=== PATIENT | male | born 1985 | race Caucasian/White ===

== ENCOUNTER 2017-03-19 14:41 | Emergency (ER) | payer SELFPAY ==
[~2017-03-19] VITALS: Ht 185.4 cm; Wt 72.6 kg
--- NOTE | 2017-03-19 14:48 | NUR ---
PT REFUSING TO BE SEEN AT THIS TIME. PT IS ALERT AND ORIENTED X 3. Patient eloped from facility. ER MD notified.
== END 2017-03-19 14:52 | disposition left against medical advice (07) ==
LOC: ER 14:43
DX: Z53.21 Procedure and treatment not carried out due to patient leaving prior to being seen by health care provider (principal)

== ENCOUNTER 2021-08-16 09:47 | Emergency (ER) | payer OTHER ==
[~2021-08-16] VITALS: Ht 193 cm; Wt 77.1 kg
--- NOTE | 2021-08-16 10:16 | NUR ---
CALLED IN ED WAITING ROOM. NO RESPONSE.
[2021-08-16 10:59] VITALS: BP 146/87
[2021-08-16] MEDS ORDERED: SULF1TAB48 PO (11:10)
[2021-08-16] MEDS ORDERED: IBUP-1957 PO (11:10)
--- NOTE | 2021-08-16 11:12 | NUR ---
BIBS FOR C/O R HAND PAIN AND SWELLING X 5 DAYS. PT STS "I DONT KNOW WHAT HAPPEN." RATES PAIN 06/23. WILL CONTINUE TO MONITOR THE PATIENT.
[2021-08-16] MEDS ORDERED: KETOROLAC TROMETHAMINE INJ 60 MG/2 ML VIAL IM ONE (11:30)
[2021-08-16] MEDS ORDERED: KETOROLAC TROMETHAMINE INJ 30 MG/ML VIAL ONE (11:33)
[2021-08-16] MEDS ORDERED: SULFAMETH/TRIMETH 800/160 MG 1 UDTAB TABLET ONE (11:38)
--- NOTE | 2021-08-16 11:59 | NUR ---
Patient discharged to home in stable condition. Written and verbal after care instructions given. Patient verbalizes understanding of instruction.
[2021-08-16] MEDS ORDERED: SULFAMETH/TRIMETH 800/160 MG 1 UDTAB TABLET PO ONE (12:00)
[2021-08-21] MEDS ORDERED: DOXY100C2 PO (16:21)
[2021-08-21] MEDS ORDERED: CLIN300C12 PO (16:21)
== END 2021-08-16 12:00 | disposition home or self-care (01) ==
LOC: ER 09:51
DX: L03.113 Cellulitis of right upper limb (principal); L02.511 Cutaneous abscess of right hand; Z79.899 Other long term (current) drug therapy
CPT/HCPCS: 96372; 99283; J1885

== ENCOUNTER 2021-08-18 12:44 | Inpatient (IN) | payer OTHER ==
[~2021-08-18] VITALS: Ht 195.6 cm; Wt 69.4 kg
[~2021-08-18 12:44] MED LIST: IBUP-1957 PO; SULF1TAB48 PO
--- NOTE | 2021-08-18 13:00 | NUR ---
patient came in to the er c/o R wrist abscess. On rooma ir, breathing evenly and unlabored. Connected to the monitor and pulse ox. Kept comfortable, will continue to monitor accordingly.
[2021-08-18 14:55] LABS: BASOPHILS # (AUTO) 0.1 K/uL (0.0-0.2); BASOPHILS % (AUTO) 0.4 % (0.0-2.0); EOSINOPHILS % (AUTO) 0.3 % (0.0-6.0); HEMATOCRIT 38 % (39-51); HEMOGLOBIN 12.2 g/dL (13.5-17.5); LYMPHOCYTES # (AUTO) 1.2 K/uL (0.8-4.8); LYMPHOCYTES % (AUTO) 8.5 % (20.0-44.0); MEAN CORPUSCULAR HGB CONC 32 g/dl (31.0-36.0); MEAN CORPUSCULAR VOLUME 87 fL (80-96); MONOCYTES # (AUTO) 0.5 K/uL (0.1-1.30); MONOCYTES % (AUTO) 3.8 % (2.0-12.0); NEUTROPHILS # (AUTO) 12.6 K/uL (1.8-8.9); PLATELET COUNT (AUTO) 521 K/uL (150-450); RED BLOOD CELL COUNT(AUTO) 4.36 MIL/uL (4.5-6.0); WHITE BLOOD COUNT (AUTO) 14.4 K/uL (4.3-11.0)
[2021-08-18 15:04] LABS: POTASSIUM 3.5 mmol/L (3.5-5.1)
--- NOTE | 2021-08-18 15:09 | NUR ---
MOVE SHEET SUBMITTED AND CALLED FOR BED.
[2021-08-18] MEDS ORDERED: LIDOCAINE 1%-EPI 1:100,000 20 ML VIAL ONE (15:27)
[2021-08-18] MEDS ORDERED: HYDROCODONE/APAP 5/325MG TABLET ONE (15:27)
[2021-08-18] MEDS ORDERED: HYDROCODONE/APAP 5/325MG TABLET PO ONE (15:30)
[2021-08-18] MEDS ORDERED: LIDOCAINE 1%-EPI 1:100,000 50 ML VIAL IJ ONE (15:30)
[2021-08-18] MEDS ORDERED: VANCOMYCIN 1 GM in IV D5W 250 ML IV ONE (15:30)
--- NOTE | 2021-08-18 16:24 | NUR ---
GOT BED 320-2 ISATU SAUCEDO
--- NOTE | 2021-08-18 17:14 | NUR ---
EPIC CALLED CLOTHING WORKER PAGED
--- NOTE | 2021-08-18 17:55 | NUR ---
[facility] CALLED GENERAL FARM MANAGER PAGED.
--- NOTE | 2021-08-18 19:06 | NUR ---
wheeled patient via gurney accompaneid by EMT in no distress. RN assigned to patient at bedside to assume care.
--- NOTE | 2021-08-18 19:14 | NUR ---
EPIC CALLED SLOT TAG INSERTER PAGED
[2021-08-18] MEDS ORDERED: VANCOMYCIN 1 GM VIAL ONE (19:39)
--- NOTE | 2021-08-18 19:56 | NUR ---
PT TRANSPORTED TO 3RD FLOOR
[2021-08-18 20:00] VITALS: BP 106/54
--- NOTE | 2021-08-18 20:00 | NUR ---
RN ms admission notes Received Pt from ISATU Thorpe. Pt arrived with a gurney. Pt came with vanco antibiotic infuising. Pt is alert and orientedX4. Respiration is normal in room air. No SOB. No S/S of distress noted. VS is stable. NARESH midline # 18 is clean, intact, flushes well and infuising well vanco abx. Pt is able to ambulate with a steady gait. awaiting for admissions orders from MD. Skin assessment is done and performed. wound pictures is taken. Reorient Pt to the room, safety and the use of call light. Pt verbalize understanding. Safety precautions is maintained. Bed at low position, brakes locked, side rails upX2, bed alarm is on and call light is within reach. Will continue to monitor.
--- NOTE | 2021-08-18 20:18 | NUR ---
RN ms notes Dr. Hagan is in the bedside.
[2021-08-18] MEDS ORDERED: MAG HYDROX/AL HYDROX/SIMETH 30 ML UDC PO PRN (21:00)
[2021-08-18] MEDS ORDERED: IV NS 0.9% 1,000 ML IV ONE (21:00)
[2021-08-18] MEDS ORDERED: ACETAMINOPHEN 325 MG TABLET PO PRN (21:00)
[2021-08-18] MEDS ORDERED: ONDANSETRON HCL/PF 4 MG/2 ML VIAL IVP PRN (21:00)
[2021-08-18] MEDS: MORPHINE SULFATE INJ 2 MG/ML DISP.SYRIN IV PRN (21:16)
--- NOTE | 2021-08-18 21:16 | NUR ---
Rn ms notes Pt is complaining of R wrist and arm 9/10 on pain scale and requesting pain meds. Administered morphine 2 mg/iv push as ordered. VS is stable. safety precautions is maintained. will continue to monitor.
[2021-08-18 21:39] VITALS: BP 106/54
--- NOTE | 2021-08-18 21:53 | NUR ---
RN ms notes Called and spoke with lab Ruba to draw lactic acid.
--- NOTE | 2021-08-18 22:04 | NUR ---
RN ms notes Pt refused scd compression. Explained risks and benefits. Pt keep refusing. Will continue to monitor.
--- NOTE | 2021-08-18 22:10 | NUR ---
RN notes Informed and notified MD for Pt's lactic acid is 1.5
--- NOTE | 2021-08-18 23:00 | NUR ---
RN ms notes MD ordered CT wrist right with contrast. Explained and informed Pt regarding the procedure. Pt signed the consent and verbalized understanding.
[2021-08-19] MEDS: VANCOMYCIN 1.25 GM in IV D5W 250 ML IV SCH ×3 (03:11→20:05)
[2021-08-19 06:23] LABS: BASOPHILS % (AUTO) 0.2 % (0.0-2.0); EOSINOPHILS % (AUTO) 0.5 % (0.0-6.0); HEMATOCRIT 35 % (39-51); HEMOGLOBIN 11.8 g/dL (13.5-17.5); LYMPHOCYTES # (AUTO) 1.8 K/uL (0.8-4.8); LYMPHOCYTES % (AUTO) 18.8 % (20.0-44.0); MEAN CORPUSCULAR HGB CONC 34 g/dl (31.0-36.0); MEAN CORPUSCULAR VOLUME 86 fL (80-96); MONOCYTES # (AUTO) 0.5 K/uL (0.1-1.30); MONOCYTES % (AUTO) 5.4 % (2.0-12.0); NEUTROPHILS # (AUTO) 7.3 K/uL (1.8-8.9); NEUTROPHILS % (AUTO) 75.1 % (43.0-81.0); PLATELET COUNT (AUTO) 432 K/uL (150-450); RED BLOOD CELL COUNT(AUTO) 4.06 MIL/uL (4.5-6.0); WHITE BLOOD COUNT (AUTO) 9.7 K/uL (4.3-11.0)
[2021-08-19] MEDS: PANTOPRAZOLE 40 MG TABLET.DR PO SCH (06:39)
[2021-08-19] MEDS: MORPHINE SULFATE INJ 2 MG/ML DISP.SYRIN IV PRN ×4 (06:40→20:06)
--- NOTE | 2021-08-19 06:40 | NUR ---
RN ms closing notes Pt is resting in bed comfortably. Pt is alert and orientedX4. Respiration is normal. NO SOB. No s/s of distress noted. VS is stable. routine meds were given as ordered. NARESH midline is clean, intact and flushes easily. Safety preacutions is maintained. Bed at low position, brakes locked, side rails upX2 and call light is within reach. Will endorse to morning nurse forCOC.
--- NOTE | 2021-08-19 06:40 | NUR ---
RN ms notes Pt is complaining of pain on R hand and R wrist 10/10 on pain scale. Pt requesting pain meds. administered morphine 2 mg/iv push as ordered for pain. VS is stable. Safety precautions is maintained. Will continue to monitor.
[2021-08-19 07:14] LABS: CALCIUM, SERUM 8.5 mg/dL (8.5-10.1); CREATININE 0.9 mg/dL (0.6-1.3); MAGNESIUM 2.3 mg/dL (1.8-2.4); POTASSIUM 3.7 mmol/L (3.5-5.1)
--- NOTE | 2021-08-19 07:45 | NUR ---
MS/RN OPENING NOTES RECEIVED PATIENT ON BED AWAKE, ALERT AND ORIENTED X4. PATIENT IS ON ROOM AIR. PATIENT IN NO APPARENT RESPIRATORY DISTRESS NOTED. NO COMPLAINED OF PAIN NOTED AT THIS TIME. WILL CONTINUE TO MONITOR.
[2021-08-19 08:00] VITALS: BP 109/55
--- NOTE | 2021-08-19 08:07 | NUR ---
WOUND CARE CONSULT: PT PRESENTS WITH RT WRIST ABSCESS, S/P I&D, PRESENT ON ADMISSION. RECOMMENDATIONS MADE FOR SKIN PROTECTION. DISCUSSED WITH NURSING STAFF. DEFER TO PMD FOR POSSIBLE GENERAL SURGERY CONSULT. Addendum: 08/19/21 at 0818 by JAMILAH ARRIAZA WNDNU RECOMMENDATIONS MADE FOR WOUND PACKING. IN AGREEMENT WITH PLAN OF CARE.
[2021-08-19] MEDS ORDERED: CT SWABBABLE VALVE TRANS SET 1 EA INFUS.SET MC ONE (08:38)
[2021-08-19] MEDS ORDERED: IV NS 0.9% 250 ML IV ONE (08:38)
[2021-08-19] MEDS ORDERED: IOHEXOL-300 100 ML VIAL IV ONE (08:38)
--- NOTE | 2021-08-19 08:53 | NUR ---
MS/RN NOTES PATIENT IS OUT IN THE UNIT BAG SEWER BY DEBRANDER.
--- NOTE | 2021-08-19 09:19 | NUR ---
MS/RN NOTES PATIENT CAME BACK IN THE UNIT.
[2021-08-19] MEDS: NICOTINE PATCH (21MG) 21 MG PATCH.TD24 TD SCH (09:20)
--- NOTE | 2021-08-19 12:45 | NUR ---
SS Consult: SS Consult requested for drug abuse & homelessness. The pt. is a 35- year old male who is in [facility] with C/O hand wound. The pt. appears disheveled is A&O X4 and makes good eye contact. The pt. remained calm & cooperative throughout interview. Pt.s mood is depressed with flat affect. Pt. denies visual & auditory hallucinations. Pt. denies SI/ HI. SIMBA explored pt.s mental health Hx. Pt. states he has been diagnosed in the past with a mental illness and refused to provide said diagnosis. SW explored pt.s living situation. Pt. admits he has been experiencing homelessness for the past few years. SW explored pt.s drug & ETOH use. Patient stated he uses Fentanyl & Meth daily. SW provided resources for Medication Assisteed Tx: [facility]: [address] [place] [address] Intake hours: 5:45am9:00am, walk-ins Tuesday, Tuesday, [facility]: [address] [place] [address] Intake hours: 5:45am12:30pm, Tuesday and [facility]: [address] [place] [id number] Intake hours: 8:00am2:00pm, Tuesday through Tuesday Pt. accepted resources and stated, I will probably go to one of these. Pt. is in the contemplation phase of stages of change. Patient stated he has received prior treatment for opioid dependence. Pt. states he is ambulatory. SIMBA explored pt.s support system. Pt. states he has no support system. Pt. states he receives Food stamps & General Relief. Plan: Pt. is agreeable to DC to care home. SIMBA discuss with pt.s nurse who stated there is no DC date at the moment. Nurse to inform SW of DC date for placement. SW will follow up as needed. Pt. signed homeless waiver and it was placed in the chart. SIMBA provided pt. with homeless, and MAT resources and he accepted them :
[2021-08-19] MEDS: ENSURE ENLIVE CHOC 237 ML CAN PO SCH ×2 (13:30→17:28)
[2021-08-19 16:00] VITALS: BP 110/61
--- NOTE | 2021-08-19 18:58 | NUR ---
MS/RN CLOSING NOTES PATIENT IS ON BED AWAKE ALERT AND ORIENTED X4. PATIENT IS ON ROOM AIR. PATIENT IN NO APPARENT RESPIRATORY DISTRESS NOTED. NO COMPLAINED OF PAIN AT THIS TIME. IV ACCESS AT LEFT UPPER ARM MIDLINE #18G PATENT AND INTACT. SEEN AND EXAMINED BY MD WITH ORDERS MADE AND CARRIED OUT. ALL DUE MEDICATIONS WAS GIVEN. SAFETY PRECAUTIONS WAS IN PLACED. BED IN LOWEST POSITION AND LOCKED. SIDERAILS UP X2. CALL LIGHT WITHIN REACH. WILL ENDORSED TO CUSHION COVER INSPECTOR FOR ARETHA.
--- NOTE | 2021-08-19 19:37 | NUR ---
MS RN OPENING NOTES RECEIVED PATIENT IN BED, WATCHING TV. AOx4. ABLE TO MAKE NEEDS KNOWN. ON RA AND TOLERATING WELL. NO SOB NOTED. NO S/SX OF RESPIRATORY DISTRESS NOTED. IV ACCESS IN NARESH MIDLINE #18G. IV IS INTACT, PATENT AND FLUSHING WELL. SAFETY PRECAUTIONS IN PLACE: BED IN LOWEST, LOCKED POSITION, SIDERAILS UPx2. TABLE AND CALL LIGHT WITHIN REACH. WILL CONTINUE TO MONITOR.
--- NOTE | 2021-08-19 20:06 | NUR ---
ADMINISTERED MORPHINE PER MD ORDER FOR PAIN. VITAL SIGNS WNL. WILL CONTINUE TO MONITOR.
[2021-08-20] MEDS: MORPHINE SULFATE INJ 2 MG/ML DISP.SYRIN IV PRN ×6 (00:04→20:38)
--- NOTE | 2021-08-20 00:04 | NUR ---
ADMINISTERED MORPHINE PER MD ORDER FOR PAIN. VITAL SIGNS WNL. WILL CONTINUE TO MONITOR.
[2021-08-20] MEDS: VANCOMYCIN 1.25 GM in IV D5W 250 ML IV SCH ×3 (04:01→19:55)
--- NOTE | 2021-08-20 04:02 | NUR ---
ADMINISTERED MORPHINE PER MD ORDER FOR PAIN. VITAL SIGNS WNL. WILL CONTINUE TO MONITOR.
--- NOTE | 2021-08-20 06:42 | NUR ---
MS RN CLOSING NOTES PATIENT IN BED, ASLEEP, AWAKENS TO VERBAL STIMULI. AOx4. ABLE TO MAKE NEEDS KNOWN. ON RA AND TOLERATING WELL. NO SOB NOTED. NO S/SX OF RESPIRATORY DISTRESS NOTED. IV ACCESS IN NARESH MIDLINE #18G. IV IS INTACT, PATENT AND FLUSHING WELL. ALL NEEDS MET. PAIN TREATED THROUGHOUT SHIFT. PT KEPT CLEAN AND DRY. SAFETY PRECAUTIONS IN PLACE: BED IN LOWEST, LOCKED POSITION, SIDERAILS UPx2. TABLE AND CALL LIGHT WITHIN REACH. WILL ENDORSE TO ONCOMING SHIFT.
--- NOTE | 2021-08-20 07:30 | NUR ---
MS RN OPENING NOTES RECEIVED PATIENT ON BED, AWAKE AND A/O X4. ON ROOM AIR TOLERATING WELL. NO SOB NOTED. NOT IN DISTRESS. WITH NO COMPLAINTS OF PAIN OR DISCOMFORT AT THIS TIME. WITH IV ACCESS AT LEFT UPPER ARM MIDLINE G18, SALINE LOCKED, INTACT AND PATENT. SAFETY MEASURES IN PLACE. CALL LIGHT WITHIN REACH. BED ON LOWEST AND LOCKED POSITION. SIDE RAILS UP X2. WILL CONTINUE TO MONITOR.
[2021-08-20 08:00] VITALS: BP 108/61
[2021-08-20] MEDS: PANTOPRAZOLE 40 MG TABLET.DR PO SCH (08:00)
[2021-08-20] MEDS: NICOTINE PATCH (21MG) 21 MG PATCH.TD24 TD SCH (08:00)
--- NOTE | 2021-08-20 08:15 | NUR ---
MS RN NOTES PATIENT REPORTED TO HAVE PAIN AT RIGHT HAND AT THE SCALE OF 8/10. VITAL SIGNS CHECKED. MORPHINE SULPHATE 2MG IV GIVEN PRN FOR PAIN. COMFORT MEASURES PROVIDED. WILL CONTINUE TO MONITOR.
[2021-08-20] MEDS: ENSURE ENLIVE CHOC 237 ML CAN PO SCH ×3 (08:49→16:39)
[2021-08-20 16:00] VITALS: BP 118/61
--- NOTE | 2021-08-20 18:35 | NUR ---
MS RN CLOSING NOTES PATIENT RESTING ON BED AND A/O X4. ON ROOM AIR TOLERATING WELL. NO SOB NOTED. NOT IN DISTRESS. WITH NO COMPLAINTS OF PAIN OR DISCOMFORT AT THIS TIME. WITH IV ACCESS AT LEFT UPPER ARM MIDLINE G18, SALINE LOCKED, INTACT AND PATENT. WOUND DRESSING DONE. SAFETY MEASURES IN PLACE. CALL LIGHT WITHIN REACH. BED ON LOWEST AND LOCKED POSITION. SIDE RAILS UP X2. WILL ENDORSE TO NEXT SHIFT FOR ARETHA.
[2021-08-20 20:00] VITALS: BP_SYST 102; BP_SYST 106; BP_SYST 131; BP_DIAS 59; BP_DIAS 71
--- NOTE | 2021-08-20 20:00 | NUR ---
MS RN NOTES RECEIVED LAYING COMFORTABLY ON BED,A/O X4,HOMELESS,RIGHT WRIST ABSCESS WITH DRESSING INTACT AND DRY.AMBULATORY.CALL LIGHT IN REACH,NEEDS ANTICIPATED.
--- NOTE | 2021-08-20 20:00 | NUR ---
MS RN NOTES DUE VANCOMYCIN IV STARTED ON LEFT UPPER ARM MIDLINE THRU IV PUMP.
--- NOTE | 2021-08-20 20:38 | NUR ---
MS RN NOTES PAIN MANAGEMENT C/O PAIN ON RIGHT WRIST,MORPHINE 2MG IV GIVEN FOR PAIN SCALE 8/10
[2021-08-21] MEDS: MORPHINE SULFATE INJ 2 MG/ML DISP.SYRIN IV PRN ×3 (00:28→09:41)
--- NOTE | 2021-08-21 00:28 | NUR ---
MS RN NOTES PAIN MANAGEMENT C/O PAIN ON RIGHT WRIST 8/10 ON PAIN SCALE,MORPHINE 2MG IV GIVEN ORDERED AND PER PATIENT REQUEST.
[2021-08-21] MEDS: VANCOMYCIN 1.25 GM in IV D5W 250 ML IV SCH ×2 (04:01→12:12)
--- NOTE | 2021-08-21 06:21 | NUR ---
MS RN NOTES FAIRLY RESTED AT NIGHT,STILL WITH ON AND OFF MODERATE TO SEVERE PAIN ON THE RIGHT WRIST,MANAGE WITH MORPHINE 2MG.IV ABX TOLERATED WELL,NO ADVERSE REACTION NOTED,CALL LIGHT IN REACH,NEEDS ATTENDED.WILL ENDORSE TO DAY NURSE FOR ARETHA.
[2021-08-21] MEDS: PANTOPRAZOLE 40 MG TABLET.DR PO SCH (08:29)
[2021-08-21] MEDS: NICOTINE PATCH (21MG) 21 MG PATCH.TD24 TD SCH (08:29)
[2021-08-21] MEDS: ENSURE ENLIVE CHOC 237 ML CAN PO SCH ×2 (08:29→12:12)
[2021-08-21 11:39] LABS: CALCIUM, SERUM 8.6 mg/dL (8.5-10.1); CREATININE 0.7 mg/dL (0.6-1.3); POTASSIUM 3.5 mmol/L (3.5-5.1)
[2021-08-21] MEDS ORDERED: MORPHINE SULFATE INJ 2 MG/ML DISP.SYRIN IV ONE (13:00)
--- NOTE | 2021-08-21 14:10 | NUR ---
MS/RN NOTES PATIENT LEFT HOSPITAL AGAINST [facility]. LEFT UPPER ARM MIDLINE WAS NOT DISCONTINUED DUE TO PATIENT LEFT WITHOUT NOTIFICATION. RN CALLED [employer] AND WAS ABLE TO SPEAK TO [employer] SUPERVISOR ELECTRIC MOTOR TESTING 525. REPORTED THE INCIDENT AND DESCRIBED PATIENT'S STATS. PER SUPERVISOR ELECTRIC MOTOR TESTING SHE IS GOING TO DISPATCH IT. CHARGE NURSE BALDOMERO AND FENCE POST DRIVER ROXANN NUGENT.
[2021-08-21] MEDS ORDERED: DOXY100C2 PO (16:21)
[2021-08-21] MEDS ORDERED: CLIN300C12 PO (16:21)
== END 2021-08-21 14:10 | disposition left against medical advice (07) | DRG 364 ==
LOC: ER 12:52 → MED 16:40
PROVIDERS: ADMIT Nurse Practitioner Family; ATTEND Nurse Practitioner Acute Care
PROC: 0J9J0ZZ Drainage of Right Hand Subcutaneous Tissue and Fascia, Open Approach (ICD-10-PCS; principal; 2021-08-18)
PROC: 05H633Z Insertion of Infusion Device into Left Subclavian Vein, Percutaneous Approach (ICD-10-PCS; 2021-08-18)
PROC: B547ZZA Ultrasonography of Left Subclavian Vein, Guidance (ICD-10-PCS; 2021-08-18)
DX: L03.113 Cellulitis of right upper limb (principal); D64.9 Anemia, unspecified; Z59.00 Homelessness unspecified; L02.413 Cutaneous abscess of right upper limb; F11.10 Opioid abuse, uncomplicated; F17.210 Nicotine dependence, cigarettes, uncomplicated; D72.829 Elevated white blood cell count, unspecified; F19.10 Other psychoactive substance abuse, uncomplicated; Z20.822 Contact with and (suspected) exposure to COVID-19
CPT/HCPCS: 36410; 36415; 73201-TC; 80048-TC; 80202-TC; 83605-TC; 83735-TC; 85025-TC; 85652-TC; 86140-TC; 86803; 87040-TC; 87070-TC; 87081-TC; 87806; A6403; A6407; G0378; J2270; J3370; J3490; J7030; J7050; J7060; Q9967